=== PATIENT | female | born 1950 | race Two or more races ===

== ENCOUNTER 2020-03-19 05:50 | Day surgery (SDC) | payer OTHER ==
[~2020-03-19 05:50] MED LIST: ATORVASTATIN CA40 MG PO; FOSAMAX70 MG PO; HYDROCH PO; VITAMIN D PO; ZESTRIL10 M1 PO
[2020-03-19] MEDS ORDERED: PERCOCET 5-3251 EACH PO (09:53)
[2020-03-19] MEDS ORDERED: POLY119PG PO (09:54)
[2020-03-19] MEDS ORDERED: NEURONTIN600 M1 PO (09:54)
== END 2020-03-19 14:05 | disposition home or self-care (01) ==
LOC: CIR.AMB 05:50
PROVIDERS: ATTEND Surgery
DX: K40.90 Unilateral inguinal hernia, without obstruction or gangrene, not specified as recurrent (principal)